=== PATIENT | female | born 1980 | race African-American/Black ===

== ENCOUNTER 2017-06-09 02:23 | Emergency (ER) | payer BC, MEDICAID ==
[2017-06-09] MEDS ORDERED: IPRATROPIUM/ALBUTEROL 0.5-2.5 MG/3 ML AMPUL NEB ONE (02:49)
--- NOTE | 2017-06-09 03:36 | RADIOLOGY REPORT (SQ) ---
EXAM DESCRIPTION: CHEST PA/LAT CLINICAL HISTORY: 36 years, Female, sob COMPARISON: None. NUMBER OF VIEWS: 2 LIMITATIONS: None. FINDINGS: Moderate airspace patchiness of the right mid lung field, right upper lobe. Normal cardiac silhouette. Intact bony thorax. IMPRESSION: Moderate right upper lobar pneumonia.
[2017-06-09] MEDS ORDERED: CEFTRIAXONE INJ 1000 MG VIAL IM ONE (03:51)
[2017-06-09] MEDS ORDERED: AZITHROMYCIN 250 MG TABLET PO ONE (03:51)
[2017-06-09] MEDS ORDERED: LIDOCAINE 1% INJ-PF (10 MG/ML) 30 ML SDV INFIL ONE (03:51)
[2017-06-09] MEDS ORDERED: ALBUTEROL SULFATE HFA (90 MCG/PUFF) 8 GM MDI (1 MDI/ER DISP) IH ONE (03:51)
--- NOTE | 2017-06-09 04:02 | ER Document Report ---
ED General - General Chief Complaint: Back Pain Stated Complaint: WHEEZING WITH BACK PAIN Time Seen by Provider: 06/09/17 02:36 TRAVEL OUTSIDE OF THE [place] IN LAST 30 DAYS: No - HPI Patient complains to provider of: wheezing back pain Notes: Shortness of breath wheezing and upper back pain ongoing for approximate last 24 -48 this looks nontoxic upon my evaluation. Hongestive heart failure with unknown clear etiology. Patient denies any swelling or weight gain. hours. Patient denies any fevers chills denies any recent travel denies any recent antibiotics. Denies any sick contacts. Patient states is just feels otherwise feeling unwell. Patient states has a history of - Related Data Allergies/Adverse Reactions: No Known Allergies Allergy (Verified 05/17/12 10:08) Past Medical History - Social History Smoking Status: Never Smoker Family History: Reviewed & Not Pertinent Patient has suicidal ideation: No Patient has homicidal ideation: No - Past Medical History Cardiac Medical History: Reports: Hx Hypertension Renal/ Medical History: Denies: Hx Peritoneal Dialysis Past Surgical History: Reports: Hx Tubal Ligation Review of Systems - Review of Systems Constitutional: No symptoms reported EENT: No symptoms reported Cardiovascular: No symptoms reported Respiratory: Short of breath Gastrointestinal: No symptoms reported Genitourinary: No symptoms reported Female Genitourinary: No symptoms reported Musculoskeletal: Back pain Skin: No symptoms reported Hematologic/Lymphatic: No symptoms reported Neurological/Psychological: No symptoms reported -: Yes All other systems reviewed and negative Physical Exam - Vital signs Vitals: Temp Pulse Resp BP Pulse Ox 99.3 F 118 H 20 155/98 H 98 06/09/17 02:25 06/09/17 02:25 06/09/17 02:25 06/09/17 02:25 06/09/17 02:25 Interpretation: Normal - General General appearance: Appears well, Alert - HEENT Head: Normocephalic, Atraumatic Eyes: Normal Pupils: PERRL - Respiratory Respiratory status: No respiratory distress Chest status: Nontender Breath sounds: Rhonchi, Wheezing Chest palpation: Normal - Cardiovascular Rhythm: Regular Heart sounds: Normal auscultation Murmur: No - Abdominal Inspection: Normal Distension: No distension Bowel sounds: Normal Tenderness: Nontender Organomegaly: No organomegaly - Back Back: Normal, Nontender - Extremities General upper extremity: Normal inspection, Nontender, Normal color, Normal ROM , Normal temperature General lower extremity: Normal inspection, Nontender, Normal color, Normal ROM , Normal temperature, Normal weight bearing. No: Krista's sign - Neurological Neuro grossly intact: Yes Cognition: Normal Orientation: AAOx4 Drew Coma Scale Eye Opening: Spontaneous Drew Coma Scale Verbal: Oriented Mendenhall Coma Scale Motor: Obeys Commands Mendenhall Coma Scale Total: 15 Speech: Normal Motor strength normal: LUE, RUE, LLE, RLE Sensory: Normal - Psychological Associated symptoms: Normal affect, Normal mood - Skin Skin Temperature: Warm Skin Moisture: Dry Skin Color: Normal Course - Re-evaluation Re-evalutation: 06/09/17 03:56 Patient feeling better after bronchodilator therapy. Chest x-ray shows a right sided pneumonia. Patient otherwise looks nontoxic we will start the patient on azithromycin. Patient was also given a dose of Rocephin here IM in the ER. Patient agrees with outpatient therapy. Patient was to be a good candidate for outpatient therapy. Patient was discharged home. - Vital Signs Vital signs: Temp Pulse Resp BP Pulse Ox 99.3 F 118 H 20 155/98 H 98 06/09/17 02:25 06/09/17 02:25 06/09/17 02:25 06/09/17 02:25 06/09/17 02:25 Discharge - Discharge Clinical Impression: Pneumonia Qualifiers: Pneumonia type: due to unspecified organism Laterality: right Lung location: unspecified part of lung Qualified Code(s): J18.9 - Pneumonia, unspecified organism Condition: Good Disposition: HOME, SELF-CARE Instructions: Pneumonia ([facility]), Azithromycin ([facility]), Family Physicians / Practices Additional Instructions: Your chest x-ray is consistent with a right-sided pneumonia. Please continue to take the inhaler that we gave you here in ER 2 puffs every 4 hours for the next 2 days. Then as needed. Take antibiotics as prescribed you would not need any antibiotics for the next 24 hours is that we gave you your first doses here. Return to ER symptoms worsen follow-up primary care for further evaluation. Prescriptions: Azithromycin 250 mg PO DAILY #4 tablet Forms: Return to Work
[2017-06-09 04:44] VITALS: BP 127/65
== END 2017-06-09 04:40 | disposition home or self-care (01) ==
LOC: ER 02:23
DX: J18.9 Pneumonia, unspecified organism (principal); R06.2 Wheezing; R06.02 Shortness of breath; M54.89 Other dorsalgia; I10 Essential (primary) hypertension
CPT/HCPCS: 94640; 99283; 96372; 71046; J3490 ×2; J0696; J7620

== ENCOUNTER 2018-04-30 15:50 | Inpatient (IN) | payer BC ==
[2018-04-30] MEDS ORDERED: NITROGLYCERIN 2% OINTMENT 1 GM PACKET TP ONE (17:34)
[2018-04-30] MEDS ORDERED: FUROSEMIDE INJ/PF 20 MG/2 ML SDV IV ONE ×2 (17:34→19:05)
[2018-04-30] MEDS ORDERED: ACETAMINOPHEN 325 MG TABLET PO ONE (17:34)
--- NOTE | 2018-04-30 18:00 | RADIOLOGY REPORT (SQ) ---
EXAM DESCRIPTION: CHEST SINGLE VIEW COMPLETED DATE/TIME: 04/30/2018 5:44 pm REASON FOR STUDY: sob COMPARISON: 06/09/2017 EXAM PARAMETERS: NUMBER OF VIEWS: One view. TECHNIQUE: Single frontal radiographic view of the chest acquired. RADIATION DOSE: NA LIMITATIONS: None. FINDINGS: LUNGS AND PLEURA: Alveolar and interstitial pulmonary edema is present. No pleural effusi ons. No pneumothorax. MEDIASTINUM AND HILAR STRUCTURES: No masses. Contour normal. HEART AND VASCULAR STRUCTURES: Marked cardiomegaly BONES: No acute findings. HARDWARE: None in the chest. OTHER: No other significant finding. IMPRESSION: Fluid overload or congestive failure pattern with alveolar and interstitial edema. Marked cardiomegaly TECHNICAL DOCUMENTATION: JOB ID: [id number] [employer]- All Rights Reserved Reading location - IP/workstation name: [email or web address]
[2018-04-30 18:16] LABS: ABSOLUTE BASOPHILS # (AUTO) 0.1 10^3/uL (0.0-0.2); ABSOLUTE EOSINOPHILS # (AUTO) 0.2 10^3/uL (0.0-0.6); ABSOLUTE LYMPHOCYTES (AUTO) 3.2 10^3/uL (0.5-4.7); ABSOLUTE MONOCYTES (AUTO) 0.4 10^3/uL (0.1-1.4); ABSOLUTE NEUT (AUTO) 5.9 10^3/uL (1.7-8.2); BASOPHILS % (AUTO) 0.9 % (0-2); EOSINOPHILS % (AUTO) 1.9 % (0-6); HEMATOCRIT 41.3 % (36.0-47.0); HEMOGLOBIN 13.2 g/dL (12.0-15.5); LYMPHOCYTES % (AUTO) 33.1 % (13-45); MEAN CORPUSCULAR HEMOGLOBIN 27.3 pg (27.0-33.4); MEAN CORPUSCULAR VOLUME 85 fl (80-97); MONOCYTES % (AUTO) 3.6 % (3-13); PLATELET COUNT 371 10^3/uL (150-450); RED BLOOD COUNT 4.83 10^6/uL (3.72-5.28); SEGMENTED NEUTROPHILS % (AUTO) 60.5 % (42-78); TOTAL CELLS COUNTED % (AUTO) 100 %; WHITE BLOOD COUNT 9.7 10^3/uL (4.0-10.5)
[2018-04-30 18:47] LABS: ALANINE AMINOTRANSFERASE 12 U/L (9-52); ALBUMIN 3.9 g/dL (3.5-5.0); ALKALINE PHOSPHATASE 66 U/L (38-126); ANION GAP 10 (5-19); ASPARTATE AMINO TRANSFERASE 20 U/L (14-36); BILIRUBIN,DIRECT 0.2 mg/dL (0.0-0.4); BILIRUBIN,TOTAL 0.7 mg/dL (0.2-1.3); BLOOD UREA NITROGEN 13 mg/dL (7-20); CARBON DIOXIDE 23 mmol/L (22-30); CHLORIDE 108 mmol/L (98-107); CREATINE KINASE 118 U/L (30-135); GLUCOSE 96 mg/dL (75-110); POTASSIUM 3.7 mmol/L (3.6-5.0); SODIUM 141.3 mmol/L (137-145); TOTAL PROTEIN 6.9 g/dL (6.3-8.2)
[2018-04-30 18:57] LABS: CREATINE KINASE MB 1.26 ng/mL (<4.55); TROPONIN I 0.018 ng/mL
[2018-04-30 19:01] LABS: FREE T3 3.38 pg/mL (2.77-5.27); FREE T4 (FREE THYROXINE) 1.24 ng/dL (0.78-2.19)
[2018-04-30] MEDS ORDERED: NITROGLYCERIN/D5W 50 MG/250 ML RTUINJ IV PRN (19:05)
[2018-04-30 19:15] LABS: THYROID STIMULATING HORMONE 12.4 uIU/mL (0.47-4.68)
--- NOTE | 2018-04-30 19:41 | ER Document Report ---
ED General - General Chief Complaint: Cough Stated Complaint: COUGH,CHEST PAIN Time Seen by Provider: 04/30/18 17:22 Notes: Patient is a 37-year-old female with a past medical history of congestive heart failure of unclear etiology, hypertension, hyperlipidemia, unfortunately not followed by cardiology or primary care at this time due to lack of insurance, not currently on any of her normal home medications and has not been for at least past 3-4 months who presents with 3 days of progressively worsening shortness of breath and generalized fatigue. Patient states that she has noted that she is been "wheezing" particular when she exerts herself. She states the shortness of breath has definitely progressed in the past 12-24 hours prompting her to present to the emergency department. She has not noted that anything seems to improve her symptoms. Exerting herself worsens her symptoms. Denies associated chest pain. States this feels similar to when she has required hospitalization in the past for volume overload secondary to congestive heart failure. TRAVEL OUTSIDE OF THE [place] IN LAST 30 DAYS: No - Related Data Allergies/Adverse Reactions: No Known Allergies Allergy (Verified 05/17/12 10:08) Past Medical History - General Information source: Patient - Social History Smoking Status: Never Smoker Frequency of alcohol use: None Drug Abuse: None Lives with: Spouse/Significant other Family History: Reviewed & Not Pertinent Patient has suicidal ideation: No Patient has homicidal ideation: No - Past Medical History Cardiac Medical History: Reports: Hx Hypertension Renal/ Medical History: Denies: Hx Peritoneal Dialysis Past Surgical History: Reports: Hx Tubal Ligation Review of Systems - Review of Systems Notes: Constitutional: Negative for fever. Positive for fatigue HENT: Negative for sore throat. Eyes: Negative for visual changes. Cardiovascular: Negative for chest pain. Respiratory: Positive for shortness of breath. Gastrointestinal: Negative for abdominal pain, vomiting or diarrhea. Genitourinary: Negative for dysuria. Musculoskeletal: Negative for back pain. Skin: Negative for rash. Neurological: Negative for headaches, weakness or numbness. 10 point ROS negative except as marked above and in HPI. Physical Exam - Vital signs Vitals: Temp Pulse Resp BP Pulse Ox 99.6 F 121 H 18 156/105 H 97 04/30/18 16:36 04/30/18 16:36 04/30/18 16:36 04/30/18 16:36 04/30/18 16:36 Interpretation: Hypertensive, Tachycardic Notes: PHYSICAL EXAMINATION: GENERAL: Appears moderately unwell but in no acute distress mildly dry HEAD: Atraumatic, normocephalic. EYES: Pupils equal round and reactive to light, extraocular movements intact, sclera anicteric, conjunctiva are normal. ENT: nares patent, oropharynx clear without exudates. Moist mucous membranes. NECK: Normal range of motion, supple without lymphadenopathy LUNGS: Diminished breath sounds at the bases bilaterally, scattered rales throughout. Mild increased work of breathing with a respiratory rate of 25 although no retractions or evidence of distress HEART: Regular tachycardia without murmurs ABDOMEN: Soft, nontender, normoactive bowel sounds. No guarding, no rebound. No masses appreciated. EXTREMITIES: Normal range of motion, trace edema in the bilateral lower extremities that is equal and symmetric. No cyanosis. NEUROLOGICAL: No focal neurological deficits. Moves all extremities spontaneously and on command. PSYCH: Normal mood, normal affect. SKIN: Warm, Dry, normal turgor, no rashes or lesions noted. Course - Re-evaluation Re-evalutation: 04/30/18 19:20 Patient presents with market hypertension, initial blood pressure at the time of my assessment is 211 systolic and 130 diastolic. Patient is complaining of increasing shortness of breath as well as generalized weakness. Chest x-ray shows overt pulmonary edema, increase in cardiomegaly relative to prior chest x- rays. BNP is also notably elevated although troponin is within acceptable limits. Patient has trace edema in the bilateral lower extremity's. Rhonchorous breath sounds in all lung gale. Patient is mildly tachypneic, saturating 97% in no overt distress. The patient received 20 mg of IV furosemide in triage, an additional 20 mg IV will be administered now. Nitro placed was placed in triage this has been removed him we have started the patient on nitroglycerin infusion starting at 80 mg/min and will up titrate by 5 mg/min every 5 minutes until we achieve a systolic blood pressure below 150 but above 120. 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 In October 2015 the patient had an ejection fraction of 24% on a stress test. Patient is not wearing a LifeVest and does not have an implanted defibrillator. She states that she was informed by Dr. Vallejo that her ejection fraction had improved and she did not need these devices. Patient is in guarded condition and will require frequent reassessments. 04/30/18 20:06 Patient's work of breathing somewhat improved. Patient complained of some mild chest pain earlier to nursing staff and states that this is now resolved. Patient's drip has been up titrated to 110 micro grams per minute, blood pressure currently 183 on 106. Heart rate 110. Saturating 96% on room air. Will continue to reassess at regular intervals. 04/30/18 20:23 Patient remains quite hypertensive, 187/124. Otherwise in no acute distress. I discussed this case with Dr. Cervantes who has accepted the patient to the ICU given her need for excluding doses of nitroglycerin. - Vital Signs Vital signs: Temp Pulse Resp BP Pulse Ox 99.6 F 112 H 24 H 182/119 H 94 04/30/18 16:36 04/30/18 17:21 04/30/18 19:51 04/30/18 19:51 04/30/18 19:51 - Laboratory Result Diagrams: 04/30/18 17:50 04/30/18 17:50 Laboratory results interpreted by me: 04/30/18 04/30/18 04/30/18 17:50 17:50 17:50 RDW 15.0 H Chloride 108 H NT-Pro-B Natriuret Pep 4700 H TSH 04/30/18 17:50 RDW Chloride NT-Pro-B Natriuret Pep TSH 12.40 H - Diagnostic Test Radiology reviewed: Image reviewed, Reports reviewed Radiology results interpreted by me: 04/30/18 19:41 Chest x-ray: Bilateral pulmonary edema, cardiomegaly - EKG Interpretation by Me Additional EKG results interpreted by me: 04/30/18 19:42 Sinus tachycardia, rate 117. No ST elevations or depressions. QTC 419. Unchanged from prior. Critical Care Note - Critical Care Note Total time excluding time spent on procedures (mins): 40 Comments: Critical care time spent obtaining history from patient or surrogate, discussions with consultants, development of treatment plan with patient or surrogate, evaluation of patient's response to treatment, examination of patient, ordering and performing treatments and interventions, ordering and review of laboratory studies, re-evaluation of patient's condition, ordering and review of radiographic studies and review of old charts Discharge - Discharge Clinical Impression: Hypertensive emergency Pulmonary edema Qualifiers: Chronicity: acute Qualified Code(s): J81.0 - Acute pulmonary edema Cardiomyopathy Qualifiers: Cardiomyopathy type: unspecified Qualified Code(s): I42.9 - Cardiomyopathy, unspecified Congestive heart failure Qualifiers: Heart failure type: unspecified Heart failure chronicity: acute on chronic Qualified Code(s): I50.9 - Heart failure, unspecified Condition: Fair Disposition: ADMITTED INPATIENT Admitting Provider: Hospitalist Unit Admitted: ICU
[2018-04-30] MEDS ORDERED: ENALAPRILAT DIHYDRATE INJ/PF 2.5 MG/2 ML SDV IV ONE (20:26)
[2018-04-30] MEDS ORDERED: LACTULOSE SYRUP 20 GM/30 ML UDCUP PO ONE (20:27)
[2018-04-30] MEDS ORDERED: HYDRALAZINE HCL INJ/PF 20 MG/1 ML SDV IV PRN (20:27)
[2018-04-30] MEDS ORDERED: MAGNESIUM HYDROXIDE SUSP 30 ML UDCUP PO PRN (20:28)
[2018-04-30] MEDS ORDERED: METOPROLOL TARTRATE PF/INJ 5 MG/5 ML SDV IV ONE (20:45)
[2018-04-30] MEDS ORDERED: SPIRONOLACTONE 25 MG TABLET PO SCH (20:45)
[2018-04-30 21:13] LABS: URINE AMPHETAMINES SCREEN NEGATIVE; URINE BARBITURATES SCREEN NEGATIVE; URINE BENZODIAZEPINES SCREEN NEGATIVE; URINE COCAINE SCREEN NEGATIVE; URINE MARIJUANA (THC) SCREEN NEGATIVE; URINE METHADONE SCREEN NEGATIVE; URINE PHENCYCLIDINE SCREEN NEGATIVE
--- NOTE | 2018-04-30 21:19 | EKG REPORT ---
SEVERITY:- OTHERWISE NORMAL ECG - SINUS TACHYCARDIA : Confirmed by: Guerda Alvarenga MD 30-Apr-2018 21:18:20
[2018-04-30] MEDS: HEPARIN SOD (PORCINE) 5,000 UNIT/ML 1 ML SYRINGE SUBCUT SCH (22:33)
[2018-04-30] MEDS: POTASSIUM CHLORIDE 10 MEQ CAPSULE.ER PO SCH (22:33)
[2018-04-30] MEDS: FUROSEMIDE INJ/PF 40 MG/4 ML SDV IV SCH (22:34)
[2018-05-01 00:24] LABS: CREATINE KINASE MB 1.21 ng/mL (<4.55); TROPONIN I 0.03 ng/mL
[2018-05-01] MEDS ORDERED: ACETAMINOPHEN 325 MG TABLET PO PRN (04:18)
--- NOTE | 2018-05-01 05:41 | PDOC H&P ---
History of Present Illness Admission Date/PCP: 04/30/18 20:34 Patient complains of: Chest pain and shortness of breath History of Present Illness: FADUMO HARRIS is a 37 year old female with a past medical history of morbid obesity, hypertension and cardiomyopathy. She presents with 5-6 days of shortness of breath associated with orthopnea, shortness of breath and chest pain prompting her to seek evaluation emergency room. Patient has been off of medications for approximately 6 months secondary to financial barrier. In the emergency room she is found to have a blood pressure of 205/134 and a BNP of 4700. She started on IV nitroglycerin and Lasix and referred to the hospitalist for admission. She is currently pain-free without nausea vomiting diaphoresis blurred vision or headache. Past Medical History Cardiac Medical History: Reports: Congestive Heart Failure, Hypertension Past Surgical History Past Surgical History: Reports: Tubal Ligation Social History Information Source: Patient Lives with: Spouse/Significant other Smoking Status: Never Smoker Frequency of Alcohol Use: Rare Hx Recreational Drug Use: No Hx Prescription Drug Abuse: No - Advance Directive Resuscitation Status: Full Code Family History Family History: DM, Hypertension Parental Family History Reviewed: Yes Children Family History Reviewed: Yes Sibling(s) Family History Reviewed.: Yes Medication/Allergy Home Medications: No Home Medications 04/30/18 Allergies/Adverse Reactions: No Known Allergies Allergy (Verified 04/30/18 20:44) Review of Systems Constitutional: PRESENT: as per HPI, fatigue, weight gain. ABSENT: chills, headache(s) Eyes: ABSENT: visual disturbances Ears: ABSENT: hearing changes Cardiovascular: PRESENT: as per HPI, chest pain, dyspnea on exertion, edema, orthropnea, palpitations Respiratory: PRESENT: as per HPI, cough, sputum Gastrointestinal: ABSENT: abdominal pain, constipation, diarrhea, hematemesis, hematochezia, nausea, vomiting Genitourinary: ABSENT: dysuria, hematuria Musculoskeletal: ABSENT: joint swelling Integumentary: ABSENT: rash, wounds Neurological: ABSENT: abnormal gait, abnormal speech, confusion, dizziness, focal weakness, syncope Psychiatric: ABSENT: anxiety, depression, homidical ideation, suicidal ideation Endocrine: ABSENT: cold intolerance, heat intolerance, polydipsia, polyuria Hematologic/Lymphatic: ABSENT: easy bleeding, easy bruising Physical Exam Vital Signs: Temp Pulse Resp BP Pulse Ox 98.1 F 100 24 H 159/100 H 96 02/15/19 21:59 04/30/18 21:59 05/01/18 03:51 05/01/18 03:51 05/01/18 03:51 Intake & Output 04/29/18 04/30/18 05/01/18 11:59 11:59 11:59 Intake Total 142 Output Total 2250 Balance -2108 Weight 139.3 kg General appearance: PRESENT: cooperative, morbidly obese, severe distress Head exam: PRESENT: atraumatic, normocephalic Eye exam: PRESENT: conjunctival injection, EOMI, PERRLA. ABSENT: scleral icterus Ear exam: PRESENT: normal external ear exam Mouth exam: PRESENT: moist, tongue midline Neck exam: ABSENT: carotid bruit, JVD, lymphadenopathy, thyromegaly Respiratory exam: PRESENT: accessory muscle use, crackles, rales, tachypnea. ABSENT: chest wall tenderness, stridor, symmetrical, unlabored Cardiovascular exam: PRESENT: gallop, +S1, +S2, systolic murmur, tachycardia Pulses: PRESENT: normal dorsalis pedis pul Vascular exam: PRESENT: normal capillary refill GI/Abdominal exam: PRESENT: normal bowel sounds, soft. ABSENT: distended, guarding, mass, organolmegaly, rebound, tenderness Rectal exam: PRESENT: deferred Extremities exam: PRESENT: +1 edema Neurological exam: PRESENT: alert, awake, oriented to person, oriented to place, oriented to time, oriented to situation, CN II-XII grossly intact. ABSENT: motor sensory deficit Psychiatric exam: PRESENT: appropriate affect, normal mood. ABSENT: homicidal ideation, suicidal ideation Skin exam: PRESENT: dry, intact, warm. ABSENT: cyanosis, rash Results Laboratory Results: 04/30/18 17:50 04/30/18 17:50 04/30/18 04/30/18 04/30/18 17:50 17:50 17:50 WBC 9.7 RBC 4.83 Hgb 13.2 Hct 41.3 MCV 85 MCH 27.3 MCHC 32.0 RDW 15.0 H Plt Count 371 Seg Neutrophils % 60.5 Lymphocytes % 33.1 Monocytes % 3.6 Eosinophils % 1.9 Basophils % 0.9 Absolute Neutrophils 5.9 Absolute Lymphocytes 3.2 Absolute Monocytes 0.4 Absolute Eosinophils 0.2 Absolute Basophils 0.1 Sodium 141.3 Potassium 3.7 Chloride 108 H Carbon Dioxide 23 Anion Gap 10 BUN 13 Creatinine 0.78 Est GFR ( Amer) > 60 Est GFR (Non-Af Amer) > 60 Glucose 96 Calcium 9.0 Total Bilirubin 0.7 AST 20 ALT 12 Alkaline Phosphatase 66 Total Protein 6.9 Albumin 3.9 TSH 12.40 H Free T4 1.24 Free T3 pg/mL 3.38 04/30/18 04/30/18 04/30/18 17:50 17:50 23:44 Creatine Kinase 118 CK-MB (CK-2) 1.26 1.21 Troponin I 0.018 0.030 NT-Pro-B Natriuret Pep 4700 H 04/30/18 23:44 Creatine Kinase 117 CK-MB (CK-2) Troponin I NT-Pro-B Natriuret Pep Impressions: Chest X-Ray 04/30/18 17:33 IMPRESSION: Fluid overload or congestive failure pattern with alveolar and interstitial edema. Marked cardiomegaly Assessment & Plan - Diagnosis (1) Cardiomyopathy Qualifiers: Cardiomyopathy type: unspecified Qualified Code(s): I42.9 - Cardiomyopathy, unspecified Is this a current diagnosis for this admission?: Yes Plan: Complicated by lifestyle and medication noncompliance, CHF care set, education. Follow-up 2D echo (2) Hypertensive emergency Is this a current diagnosis for this admission?: Yes Plan: ICU admission, IV nitroglycerin, Lasix, REJI inhibitor and hydralazine as needed (3) Pulmonary edema Qualifiers: Chronicity: acute Qualified Code(s): J81.0 - Acute pulmonary edema Is this a current diagnosis for this admission?: Yes Plan: Secondary to hypertensive emergency. (4) Obesity Is this a current diagnosis for this admission?: Yes Plan: Morbid obesity will evaluate for metabolic cause with evaluation of thyroid function and dietitian consultation - Time Time Spent: 50 to 70 Minutes - Inpatient Certification Medical Necessity: Need Close Monitoring Due to Risk of Patient Decompensation
[2018-05-01 05:53] LABS: ABSOLUTE BASOPHILS # (AUTO) 0.1 10^3/uL (0.0-0.2); ABSOLUTE EOSINOPHILS # (AUTO) 0.1 10^3/uL (0.0-0.6); ABSOLUTE LYMPHOCYTES (AUTO) 2.4 10^3/uL (0.5-4.7); ABSOLUTE MONOCYTES (AUTO) 0.5 10^3/uL (0.1-1.4); ABSOLUTE NEUT (AUTO) 6.1 10^3/uL (1.7-8.2); BASOPHILS % (AUTO) 0.6 % (0-2); EOSINOPHILS % (AUTO) 1.5 % (0-6); HEMATOCRIT 38.5 % (36.0-47.0); LYMPHOCYTES % (AUTO) 25.7 % (13-45); MEAN CORPUSCULAR HEMOGLOBIN 27.5 pg (27.0-33.4); MEAN CORPUSCULAR HGB CONC 33.8 g/dL (32.0-36.0); MEAN CORPUSCULAR VOLUME 82 fl (80-97); MONOCYTES % (AUTO) 5.3 % (3-13); PLATELET COUNT 383 10^3/uL (150-450); RED BLOOD COUNT 4.73 10^6/uL (3.72-5.28); RED CELL DISTRIBUTION WIDTH 14.9 % (11.5-14.0); SEGMENTED NEUTROPHILS % (AUTO) 66.9 % (42-78); TOTAL CELLS COUNTED % (AUTO) 100 %; WHITE BLOOD COUNT 9.2 10^3/uL (4.0-10.5)
[2018-05-01 06:06] LABS: ANION GAP 9 (5-19); BLOOD UREA NITROGEN 14 mg/dL (7-20); CARBON DIOXIDE 27 mmol/L (22-30); CHLORIDE 107 mmol/L (98-107); GLUCOSE 119 mg/dL (75-110); POTASSIUM 3.7 mmol/L (3.6-5.0); SODIUM 142.7 mmol/L (137-145)
[2018-05-01 06:14] LABS: CREATINE KINASE MB 0.95 ng/mL (<4.55); TROPONIN I 0.029 ng/mL
[2018-05-01] MEDS: HEPARIN SOD (PORCINE) 5,000 UNIT/ML 1 ML SYRINGE SUBCUT SCH ×3 (06:23→22:13)
--- NOTE | 2018-05-01 10:16 | XCELERA REPORT ---
[address] [address] Transthoracic Echocardiogram Report Name: FADUMO HARRIS Age: 37 yrs Gender: Female : 1980 Patient Status: Inpatient Patient Location: ICU^[id number] Study Date: 05/01/2018 09:53 AM Height: 70 in Weight: 312 lb BSA: 2.5 m2 Procedure: A complete two-dimensional transthoracic echocardiogram was performed (2D, M-mode, spectral and color flow Doppler). The study was technically difficult with many images being suboptimal in quality. Reason For Study: s4 Ordering Physician: ALYSON MOORE Performed By: Ollie Alcala Interpretation Summary The study was technically difficult with many images being suboptimal in quality. Left ventricular systolic function is mildly reduced. The Ejection Fraction estimate is 45-50% Consider additional methods to assess LVEF such as MUGA scan, CTA heart, cardiac MRI, MARIELLE, etc. if clinically indicated. There is mild concentric left ventricular hypertrophy. The left ventricle is mildly dilated. Doppler measurements suggest pseudonormalized left ventricular relaxation, which is associated with grade II/IV or mild to moderate diastolic dysfunction Regional wall motion abnormalities cannot be excluded due to limited visualization. The right ventricular systolic function is normal. The right atrium is normal in size The left atrium is mildly dilated. There is no mitral valve stenosis. There is a trace to mild amount of mitral regurgitation There is no aortic valve stenosis No aortic regurgitation is present. There is a trace or physiologic amount of tricuspid regurgitation Tricuspid regurgitation jet envelope not well defined to measure RV systolic pressure accurately. The aortic root is not well visualized but is probably normal size. The inferior vena cava appeared normal and decreased > 50% with respiration (RAP 5-10 mmHg) Minimal pericardial effusion. MMode/2D Measurements & Calculations RVDd: 2.2 cm LVIDd: 6.9 cm FS: 27.6 % Ao root diam: 3.7 cm IVSd: 0.74 cm LVIDs: 5.0 cm EDV(Teich): 249.4 ml Ao root area: 11.0 cm2 LVPWd: 1.2 cm ESV(Teich): 119.2 ml EF(Teich): 52.2 % LVOT diam: 2.2 cm LVOT area: 3.8 cm2 Doppler Measurements & Calculations MV E max oma: MV dec slope: Ao V2 max: LV V1 max P.2 cm/sec 516.7 cm/sec2 137.1 cm/sec 7.1 mmHg MV A max oma: MV dec time: 0.19 sec Ao max PG: LV V1 max: 58.9 cm/sec 7.5 mmHg 133.6 cm/sec MV E/A: 1.6 BASIL(V,D): 3.7 cm2 PA V2 max: PI end-d oma: 84.1 cm/sec 44.0 cm/sec PA max P.8 mmHg Left Ventricle The left ventricle is mildly dilated. There is mild concentric left ventricular hypertrophy. Left ventricular systolic function is mildly reduced. The Ejection Fraction estimate is 45-50%. Consider additional methods to assess LVEF such as MUGA scan, CTA heart, cardiac MRI, MARIELLE, etc. if clinically indicated. Doppler measurements suggest pseudonormalized left ventricular relaxation, which is associated with grade II/IV or mild to moderate diastolic dysfunction. Regional wall motion abnormalities cannot be excluded due to limited visualization. Right Ventricle The right ventricle is grossly normal size. There is normal right ventricular wall thickness. The right ventricular systolic function is normal. Atria The right atrium is normal in size. The left atrium is mildly dilated. Interarterial septum not well visualized and not well dopplered. Cannot comment on ASD/PFO presence. Mitral Valve The mitral valve is grossly normal. There is no mitral valve stenosis. There is a trace to mild amount of mitral regurgitation. Aortic Valve The aortic valve is grossly normal. There is no aortic valve stenosis. No aortic regurgitation is present. Tricuspid Valve The tricuspid valve is not well visualized, but is grossly normal. There is no tricuspid stenosis. There is a trace or physiologic amount of tricuspid regurgitation. Tricuspid regurgitation jet envelope not well defined to measure RV systolic pressure accurately. Pulmonic Valve The pulmonic valve is not well visualized. Great Vessels The aortic root is not well visualized but is probably normal size. The inferior vena cava appeared normal and decreased > 50% with respiration (RAP 5-10 mmHg). Effusions Minimal pericardial effusion. Incidental Findings Consider alternative methods to evaluate LVEF such as MUGA scan, cardiac MRI, or cardiac CTA. : ALYSON MOORE > Dakotah Vallejo
[2018-05-01] MEDS: DOCUSATE SODIUM 100 MG CAPSULE PO SCH (10:20)
[2018-05-01] MEDS: FUROSEMIDE INJ/PF 40 MG/4 ML SDV IV SCH ×2 (10:20→22:13)
[2018-05-01] MEDS: POTASSIUM CHLORIDE 10 MEQ CAPSULE.ER PO SCH ×2 (10:20→22:13)
[2018-05-01] MEDS ORDERED: HYDRALAZINE HCL INJ/PF 20 MG/1 ML SDV IV PRN (11:50)
[2018-05-01 12:19] LABS: CREATINE KINASE MB 0.91 ng/mL (<4.55); TROPONIN I 0.026 ng/mL
--- NOTE | 2018-05-01 12:32 | PDOC PROGRESS REPORT ---
Subjective Progress Note for:: 05/01/18 Subjective:: This is a 37 yr old female with a PMH of hypertension, noncompliance, hypothyroidism, combined chronic systolic and diastolic heart failure who presented with SOB and was found to have a BP of 205/134. Patient was admitted for hypertensive emergency with CHF exacerbation and was started on nitro drip in the ICU. No acute event overnight. She was weaned of nitro this morning. BP upon encounter is 150/105. She says she feels better today. Denies SOB or chest pain. She admits she has not been taking any medication for the past 6 months and has not followed up with her doctors. She says she was on Coreg, lisinopril and HCTZ before. Reason For Visit: HTN EMERG,HEART FAILURE Physical Exam Vital Signs: Temp Pulse Resp BP Pulse Ox 98.1 F 89 30 H 151/119 H 98 05/01/18 08:00 05/01/18 09:59 05/01/18 10:00 05/01/18 10:47 05/01/18 10:47 Intake & Output 04/30/18 05/01/18 05/02/18 06:59 06:59 06:59 Intake Total 142 Output Total 2250 Balance -2108 Weight 306 lb 14.135 oz General appearance: PRESENT: no acute distress, well-developed, well-nourished Head exam: PRESENT: atraumatic, normocephalic Eye exam: PRESENT: conjunctiva pink, EOMI, PERRLA. ABSENT: scleral icterus Ear exam: PRESENT: normal external ear exam Mouth exam: PRESENT: moist, tongue midline Neck exam: ABSENT: carotid bruit, JVD, lymphadenopathy, thyromegaly Respiratory exam: PRESENT: clear to auscultation césar. ABSENT: rales, rhonchi, wheezes Cardiovascular exam: PRESENT: RRR. ABSENT: diastolic murmur, rubs, systolic murmur Pulses: PRESENT: normal dorsalis pedis pul GI/Abdominal exam: PRESENT: normal bowel sounds, soft. ABSENT: distended, guarding, mass, organolmegaly, rebound, tenderness Rectal exam: PRESENT: deferred Neurological exam: PRESENT: alert, awake, oriented to person, oriented to place, oriented to time, oriented to situation, CN II-XII grossly intact. ABSENT: motor sensory deficit Results Laboratory Results: 05/01/18 05:41 05/01/18 05:41 04/30/18 04/30/18 04/30/18 17:50 17:50 17:50 WBC 9.7 RBC 4.83 Hgb 13.2 Hct 41.3 MCV 85 MCH 27.3 MCHC 32.0 RDW 15.0 H Plt Count 371 Seg Neutrophils % 60.5 Lymphocytes % 33.1 Monocytes % 3.6 Eosinophils % 1.9 Basophils % 0.9 Absolute Neutrophils 5.9 Absolute Lymphocytes 3.2 Absolute Monocytes 0.4 Absolute Eosinophils 0.2 Absolute Basophils 0.1 Sodium 141.3 Potassium 3.7 Chloride 108 H Carbon Dioxide 23 Anion Gap 10 BUN 13 Creatinine 0.78 Est GFR ( Amer) > 60 Est GFR (Non-Af Amer) > 60 Glucose 96 Calcium 9.0 Total Bilirubin 0.7 AST 20 ALT 12 Alkaline Phosphatase 66 Total Protein 6.9 Albumin 3.9 TSH 12.40 H Free T4 1.24 Free T3 pg/mL 3.38 05/01/18 05/01/18 05:41 05:41 WBC 9.2 RBC 4.73 Hgb 13.0 Hct 38.5 MCV 82 MCH 27.5 MCHC 33.8 RDW 14.9 H Plt Count 383 Seg Neutrophils % 66.9 Lymphocytes % 25.7 Monocytes % 5.3 Eosinophils % 1.5 Basophils % 0.6 Absolute Neutrophils 6.1 Absolute Lymphocytes 2.4 Absolute Monocytes 0.5 Absolute Eosinophils 0.1 Absolute Basophils 0.1 Sodium 142.7 Potassium 3.7 Chloride 107 Carbon Dioxide 27 Anion Gap 9 BUN 14 Creatinine 0.76 Est GFR ( Amer) > 60 Est GFR (Non-Af Amer) > 60 Glucose 119 H Calcium 9.0 Total Bilirubin AST ALT Alkaline Phosphatase Total Protein Albumin TSH Free T4 Free T3 pg/mL 04/30/18 04/30/18 04/30/18 17:50 17:50 23:44 Creatine Kinase 118 CK-MB (CK-2) 1.26 1.21 Troponin I 0.018 0.030 NT-Pro-B Natriuret Pep 4700 H 04/30/18 05/01/18 05/01/18 23:44 05:41 05:41 Creatine Kinase 117 107 CK-MB (CK-2) 0.95 Troponin I 0.029 NT-Pro-B Natriuret Pep 05/01/18 05/01/18 11:45 11:45 Creatine Kinase 102 CK-MB (CK-2) 0.91 Troponin I 0.026 NT-Pro-B Natriuret Pep Impressions: Chest X-Ray 04/30/18 17:33 IMPRESSION: Fluid overload or congestive failure pattern with alveolar and interstitial edema. Marked cardiomegaly Assessment & Plan - Diagnosis (1) Hypertensive emergency Is this a current diagnosis for this admission?: Yes Plan: Weaned off nitro drip this morning. Will restart previous meds and will start patient on Coreg 25 mg bid and Losartan 50 mg daily. Will adjust dose or add HCTZ depending on her next blood pressures. (2) Acute on chronic combined systolic (congestive) and diastolic (congestive) heart failure Is this a current diagnosis for this admission?: Yes Plan: Last EF in 2016 was 25%. Recent echo shows recovered EF of 45%. Conitnue diuresis with IV Lasix. Coreg and losartan restarted. (3) Hypothyroidism Is this a current diagnosis for this admission?: Yes Plan: Will restart patient on synthroid. - Time Time Spent with patient: 25-34 minutes
[2018-05-01] MEDS: LEVOTHYROXINE SODIUM 0.075 MG TABLET PO SCH (13:50)
[2018-05-01] MEDS: LOSARTAN POTASSIUM 50 MG TABLET PO SCH (13:51)
[2018-05-01] MEDS: CARVEDILOL 12.5 MG TABLET PO SCH ×2 (13:52→22:13)
[2018-05-01 15:59] LABS: POTASSIUM 4.3 mmol/L (3.6-5.0)
[2018-05-02 03:59] LABS: ABSOLUTE BASOPHILS # (AUTO) 0.1 10^3/uL (0.0-0.2); ABSOLUTE EOSINOPHILS # (AUTO) 0.3 10^3/uL (0.0-0.6); ABSOLUTE LYMPHOCYTES (AUTO) 1.8 10^3/uL (0.5-4.7); ABSOLUTE MONOCYTES (AUTO) 0.4 10^3/uL (0.1-1.4); ABSOLUTE NEUT (AUTO) 7.2 10^3/uL (1.7-8.2); BASOPHILS % (AUTO) 0.7 % (0-2); EOSINOPHILS % (AUTO) 2.8 % (0-6); HEMATOCRIT 37.5 % (36.0-47.0); HEMOGLOBIN 12.6 g/dL (12.0-15.5); LYMPHOCYTES % (AUTO) 18.7 % (13-45); MEAN CORPUSCULAR HEMOGLOBIN 27.3 pg (27.0-33.4); MEAN CORPUSCULAR HGB CONC 33.6 g/dL (32.0-36.0); MEAN CORPUSCULAR VOLUME 81 fl (80-97); MONOCYTES % (AUTO) 4.1 % (3-13); PLATELET COUNT 383 10^3/uL (150-450); RED CELL DISTRIBUTION WIDTH 14.6 % (11.5-14.0); SEGMENTED NEUTROPHILS % (AUTO) 73.7 % (42-78); TOTAL CELLS COUNTED % (AUTO) 100 %; WHITE BLOOD COUNT 9.7 10^3/uL (4.0-10.5)
[2018-05-02 04:16] LABS: ANION GAP 7 (5-19); BLOOD UREA NITROGEN 15 mg/dL (7-20); CALCIUM 8.9 mg/dL (8.4-10.2); CARBON DIOXIDE 27 mmol/L (22-30); CHLORIDE 105 mmol/L (98-107); GLUCOSE 106 mg/dL (75-110); POTASSIUM 4.1 mmol/L (3.6-5.0); SODIUM 139.2 mmol/L (137-145)
[2018-05-02] MEDS: HEPARIN SOD (PORCINE) 5,000 UNIT/ML 1 ML SYRINGE SUBCUT SCH (06:03)
[2018-05-02] MEDS: LEVOTHYROXINE SODIUM 0.075 MG TABLET PO SCH (06:03)
[2018-05-02] MEDS: DOCUSATE SODIUM 100 MG CAPSULE PO SCH (09:11)
[2018-05-02] MEDS: FUROSEMIDE 20 MG TABLET PO SCH ×2 (09:17→17:40)
[2018-05-02] MEDS: LOSARTAN POTASSIUM 50 MG TABLET PO SCH (09:17)
[2018-05-02] MEDS: CARVEDILOL 12.5 MG TABLET PO SCH ×2 (09:17→23:16)
[2018-05-02] MEDS: FONDAPARINUX SODIUM INJ 2.5 MG/0.5 ML DISP.SYRIN SUBCUT SCH (09:17)
--- NOTE | 2018-05-02 10:36 | RADIOLOGY REPORT (SQ) ---
EXAM DESCRIPTION: CHEST SINGLE VIEW COMPLETED DATE/TIME: 05/02/2018 9:57 am REASON FOR STUDY: reassess congestion COMPARISON: Chest films 04/30/2018, 06/09/2017 EXAM PARAMETERS: NUMBER OF VIEWS: One view. TECHNIQUE: Single frontal radiographic view of the chest acquired. RADIATION DOSE: NA LIMITATIONS: None. FINDINGS: LUNGS AND PLEURA: Minimal lingular atelectasis. Lungs are otherwise well inflated and franchesca ar. No pleural effusion. No pneumothorax. MEDIASTINUM AND HILAR STRUCTURES: No masses. Contour normal. HEART AND VASCULAR STRUCTURES: Stable massive cardiomegaly BONES: No acute findings. HARDWARE: None in the chest. OTHER: No other significant finding. IMPRESSION: Minimal left upper lobe bandlike atelectasis in the lingula Stable massive cardiomegaly. Question pericardial effusion given increase in heart size since 018 TECHNICAL DOCUMENTATION: JOB ID: [id number] [employer]- All Rights Reserved Reading location - IP/workstation name: [email or web address]
--- NOTE | 2018-05-02 13:29 | PDOC PROGRESS REPORT ---
Subjective Progress Note for:: 05/02/18 Subjective:: This is a 37 yr old female with a PMH of hypertension, noncompliance, hypothyroidism, combined chronic systolic and diastolic heart failure who presented with SOB and was found to have a BP of 205/134. Patient was admitted for hypertensive emergency with CHF exacerbation and was started on nitro drip in the ICU. 05/01: She was weaned of nitro this morning. BP upon encounter is 150/105. She says she feels better today. Denies SOB or chest pain. She admits she has not been taking any medication for the past 6 months and has not followed up with her doctors. She says she was on Coreg, lisinopril and HCTZ before. 05/02: No acute event overnight. Blood pressures have improved after restarting her on oral meds. She denies SOB or chest pain this morning. She has not required antihypertensive drip. She will be downgraded from the ICU. Reason For Visit: HTN EMERG,HEART FAILURE Physical Exam Vital Signs: Temp Pulse Resp BP Pulse Ox 98.0 F 76 25 H 123/76 96 05/02/18 12:00 05/02/18 12:00 05/02/18 12:00 05/02/18 12:00 05/02/18 12:00 Intake & Output 05/01/18 05/02/18 05/03/18 06:59 06:59 06:59 Intake Total 142 0 Output Total 2250 2600 Balance -2108 -2600 0 Weight 306 lb 14.135 oz 304 lb 3.806 oz General appearance: PRESENT: no acute distress, well-developed, well-nourished Head exam: PRESENT: atraumatic, normocephalic Eye exam: PRESENT: conjunctiva pink, EOMI, PERRLA. ABSENT: scleral icterus Ear exam: PRESENT: normal external ear exam Mouth exam: PRESENT: moist, tongue midline Neck exam: ABSENT: carotid bruit, JVD, lymphadenopathy, thyromegaly Respiratory exam: PRESENT: clear to auscultation césar. ABSENT: rales, rhonchi, wheezes Cardiovascular exam: PRESENT: RRR. ABSENT: diastolic murmur, rubs, systolic murmur Pulses: PRESENT: normal dorsalis pedis pul GI/Abdominal exam: PRESENT: normal bowel sounds, soft. ABSENT: distended, guarding, mass, organolmegaly, rebound, tenderness Rectal exam: PRESENT: deferred Neurological exam: PRESENT: alert, awake, oriented to person, oriented to place, oriented to time, oriented to situation, CN II-XII grossly intact. ABSENT: motor sensory deficit Results Laboratory Results: 05/02/18 03:47 05/02/18 03:47 05/01/18 05/02/18 05/02/18 15:21 03:47 03:47 WBC 9.7 RBC 4.60 Hgb 12.6 Hct 37.5 MCV 81 MCH 27.3 MCHC 33.6 RDW 14.6 H Plt Count 383 Seg Neutrophils % 73.7 Lymphocytes % 18.7 Monocytes % 4.1 Eosinophils % 2.8 Basophils % 0.7 Absolute Neutrophils 7.2 Absolute Lymphocytes 1.8 Absolute Monocytes 0.4 Absolute Eosinophils 0.3 Absolute Basophils 0.1 Sodium 139.2 Potassium 4.3 4.1 Chloride 105 Carbon Dioxide 27 Anion Gap 7 BUN 15 Creatinine 0.82 Est GFR ( Amer) > 60 Est GFR (Non-Af Amer) > 60 Glucose 106 Calcium 8.9 Magnesium 2.0 04/30/18 04/30/18 04/30/18 17:50 17:50 23:44 Creatine Kinase 118 CK-MB (CK-2) 1.26 1.21 Troponin I 0.018 0.030 NT-Pro-B Natriuret Pep 4700 H 04/30/18 05/01/18 05/01/18 23:44 05:41 05:41 Creatine Kinase 117 107 CK-MB (CK-2) 0.95 Troponin I 0.029 NT-Pro-B Natriuret Pep 05/01/18 05/01/18 11:45 11:45 Creatine Kinase 102 CK-MB (CK-2) 0.91 Troponin I 0.026 NT-Pro-B Natriuret Pep Impressions: Chest X-Ray 05/02/18 00:00 IMPRESSION: Minimal left upper lobe bandlike atelectasis in the lingula Stable massive cardiomegaly. Question pericardial effusion given increase in heart size since 06/09/2017 Assessment & Plan - Diagnosis (1) Hypertensive emergency Is this a current diagnosis for this admission?: Yes Plan: Resolved. 05/01: Weaned off nitro drip this morning. Will restart previous meds and will start patient on Coreg 25 mg bid and Losartan 50 mg daily. Will adjust dose or add HCTZ depending on her next blood pressures. 05/02: Blood pressures are at goal. Continue Coreg and Losartan. Switch IV Lasix 40 mg bid to 20 mg PO bid. (2) Acute on chronic combined systolic (congestive) and diastolic (congestive) heart failure Is this a current diagnosis for this admission?: Yes Plan: 05/01: Last EF in 2016 was 25%. Recent echo shows recovered EF of 45%. Continue diuresis with IV Lasix. Coreg and losartan restarted. Her last stress test was negative. She says she was told by her previous providers that her cardiomyopathy was likely nonischemic and possiblly from both her chronic uncontrolled HTN and hypothyroidism. She will follow up with DR. Vallejo as outpatient later. 05/02: Switch to PO Lasix. Continue Coreg and Losartan. (3) Hypothyroidism Is this a current diagnosis for this admission?: Yes Plan: 05/01: Will restart patient on synthroid. - Time Time Spent with patient: 25-34 minutes
[2018-05-03] MEDS: LEVOTHYROXINE SODIUM 0.075 MG TABLET PO SCH (06:07)
[2018-05-03] MEDS: CARVEDILOL 12.5 MG TABLET PO SCH (13:08)
[2018-05-03] MEDS: FUROSEMIDE 20 MG TABLET PO SCH (13:08)
[2018-05-03] MEDS: FONDAPARINUX SODIUM INJ 2.5 MG/0.5 ML DISP.SYRIN SUBCUT SCH (13:08)
[2018-05-03] MEDS: LOSARTAN POTASSIUM 50 MG TABLET PO SCH (13:09)
[2018-05-03] MEDS: DOCUSATE SODIUM 100 MG CAPSULE PO SCH (13:09)
[2018-05-03 13:17] VITALS: BP 135/83
--- NOTE | 2018-05-03 16:45 | PDOC DISCHARGE SUMMARY ---
General - Admit/Disc Date/PCP Admission Date/Primary Care Provider: 04/30/18 20:34 Discharge Date: 05/03/18 - Discharge Diagnosis (1) Hypertensive emergency Is this a current diagnosis for this admission?: Yes (2) Acute on chronic combined systolic (congestive) and diastolic (congestive) heart failure Is this a current diagnosis for this admission?: Yes (3) Hypothyroidism Is this a current diagnosis for this admission?: Yes - Additional Information Resuscitation Status: Full Code Discharge Diet: Cardiac Discharge Activity: Activity As Tolerated, Balance Activity w/Rest, Weigh Daily Prescriptions: Carvedilol 25 mg PO Q12 #60 tablet Furosemide [Lasix 20 mg Tablet] 20 mg PO BID #60 tablet Levothyroxine Sodium [Synthroid 0.075 mg Tablet] 0.075 mg PO Q6AM #30 tablet Losartan Potassium [Cozaar 50 mg Tablet] 50 mg PO DAILY #30 tablet Home Medications: Carvedilol 25 mg PO Q12 #60 tablet 05/03/18 Furosemide [Lasix 20 mg Tablet] 20 mg PO BID #60 tablet 05/03/18 Levothyroxine Sodium [Synthroid 0.075 mg Tablet] 0.075 mg PO Q6AM #30 tablet 05/03/18 Losartan Potassium [Cozaar 50 mg Tablet] 50 mg PO DAILY #30 tablet 05/03/18 History of Present Illness History of Present Illness: Admitting hospitalist's H&P: FADUMO HARRIS is a 37 year old female with a past medical history of morbid obesity, hypertension and cardiomyopathy. She presents with 5-6 days of shortness of breath associated with orthopnea, shortness of breath and chest pain prompting her to seek evaluation emergency room. Patient has been off of medications for approximately 6 months secondary to financial barrier. In the emergency room she is found to have a blood pressure of 205/134 and a BNP of 4700. She started on IV nitroglycerin and Lasix and referred to the hospitalist for admission. She is currently pain-free without nausea vomiting diaphoresis blurred vision or headache. Hospital Course Hospital Course: This is a 37 yr old female with a PMH of hypertension, noncompliance, hypothyroidism, combined chronic systolic and diastolic heart failure who presented with SOB and was found to have a BP of 205/134. Patient was admitted for hypertensive emergency with CHF exacerbation and was started on nitro drip in the ICU. 05/01: She was weaned off nitro this morning. BP upon encounter is 150/105. She says she feels better today. Denies SOB or chest pain. She admits she has not been taking any medication for the past 6 months and has not followed up with her doctors. She says she was on Coreg, lisinopril and HCTZ before. She was restarted on Coreg and Losartan. Her blood pressures were well con trolled with both. Her IV Lasix was also switched to PO. The congestion noted in her initial CXR di d resolve. She returned to her baseline. Her TSH also came back elevated. She was restarted on synthroid. Last EF in 2016 was 25%. Recent echo shows recovered EF of 45%. Her last stress test was negative. She says she was told by her previous providers that her cardiomyopathy was likely nonischemic and possiblly from both her chronic uncontrolled HTN and hypothyroidism. She will follow up with Dr. Vallejo as outpatient later. Educated in length about compliance to her meds. She says she stopped taking them previously as she lost and switched insurance. She will be given a ff-up with PCP and Dr. Vallejo as well. Physical Exam Vital Signs: Temp Pulse Resp BP Pulse Ox 97.8 F 78 25 H 144/84 H 96 05/03/18 08:00 05/03/18 08:00 05/03/18 08:00 05/03/18 08:00 05/03/18 08:00 Intake & Output 05/02/18 05/03/18 05/04/18 06:59 06:59 06:59 Intake Total 240 Output Total 2600 700 100 Balance -2600 -460 -100 Weight 304 lb 3.806 oz 307 lb 12.245 oz General appearance: PRESENT: no acute distress, well-developed, well-nourished Head exam: PRESENT: atraumatic, normocephalic Eye exam: PRESENT: conjunctiva pink, EOMI, PERRLA. ABSENT: scleral icterus Ear exam: PRESENT: normal external ear exam Mouth exam: PRESENT: moist, tongue midline Neck exam: ABSENT: carotid bruit, JVD, lymphadenopathy, thyromegaly Respiratory exam: PRESENT: clear to auscultation césar. ABSENT: rales, rhonchi, wheezes Cardiovascular exam: PRESENT: RRR. ABSENT: diastolic murmur, rubs GI/Abdominal exam: PRESENT: normal bowel sounds, soft. ABSENT: distended, guarding, mass, organolmegaly, rebound, tenderness Rectal exam: PRESENT: deferred Neurological exam: PRESENT: alert, awake, oriented to person, oriented to place, oriented to time, oriented to situation, CN II-XII grossly intact. ABSENT: motor sensory deficit Results Laboratory Results: 05/02/18 03:47 05/02/18 03:47 04/30/18 04/30/18 04/30/18 17:50 17:50 23:44 Creatine Kinase 118 CK-MB (CK-2) 1.26 1.21 Troponin I 0.018 0.030 NT-Pro-B Natriuret Pep 4700 H 04/30/18 05/01/18 05/01/18 23:44 05:41 05:41 Creatine Kinase 117 107 CK-MB (CK-2) 0.95 Troponin I 0.029 NT-Pro-B Natriuret Pep 05/01/18 05/01/18 11:45 11:45 Creatine Kinase 102 CK-MB (CK-2) 0.91 Troponin I 0.026 NT-Pro-B Natriuret Pep Impressions: Chest X-Ray 05/02/18 00:00 IMPRESSION: Minimal left upper lobe bandlike atelectasis in the lingula Stable massive cardiomegaly. Question pericardial effusion given increase in heart size since 06/09/2017 Qualifiers - * PATIENT BEING DISCHARGED WITH ANY OF THE FOLLOWING DIAGNOSIS: Heart Failure Stroke Pt being discharged on Statins?: No Reason(s) for not prescribing Statins therapy:: Not indicated RI Pt being discharged on Aspirin therapy?: No Reason(s) for not prescribing Aspirin therapy:: Not indicated RI Pt discharged ACEI/ARBS?: Yes HF Pt being discharged on ACEI for LVEF less than 40%?: Yes HF Pt being discharged on ARBS for LVEF less than 40%?: Yes HF Pt with Afib discharged with Warfarin?: No Reason(s) for not prescribing Warfarin:: Not indicated HF Pt discharged on evidence-based Beta Anastasia:: Yes
== END 2018-05-03 13:26 | disposition home or self-care (01) | DRG 304 ==
LOC: ER 15:50 → EH 20:34 → ICU 21:44
PROVIDERS: ADMIT Internal Medicine; ATTEND Internal Medicine
PROC: 5A09457 Assistance with Respiratory Ventilation, 24-96 Consecutive Hours, Continuous Positive Airway Pressure (ICD-10-PCS; principal; 2018-04-30)
DX: I16.1 Hypertensive emergency (principal); I50.43 Acute on chronic combined systolic (congestive) and diastolic (congestive) heart failure; J81.0 Acute pulmonary edema; Z68.41 Body mass index [BMI] 40.0-44.9, adult; I11.0 Hypertensive heart disease with heart failure; I50.9 Heart failure, unspecified; E03.9 Hypothyroidism, unspecified; E78.5 Hyperlipidemia, unspecified; Z79.899 Other long term (current) drug therapy; E66.01 Morbid (severe) obesity due to excess calories; Z91.14 Patient's other noncompliance with medication regimen; Z59.9 Problem related to housing and economic circumstances, unspecified; Z83.3 Family history of diabetes mellitus; Z82.49 Family history of ischemic heart disease and other diseases of the circulatory system
CPT/HCPCS: 36415; 71045; 80048; 80053; 80307; 82550; 82553; 83735; 83880; 84132; 84439; 84443; 84481; 84484; 85025; 93005; 93010; 93306; 96374; 96376; 99291; J1644; J1652; J1940; J3490